=== PATIENT | male | born 1945 | race Caucasian/White ===

== ENCOUNTER 2022-09-23 11:58 | Day surgery (SDC) | payer MEDICARE ==
[2022-09-23] MEDS ORDERED: Midazolam 1 MG/ML 2 ML SDV IV ONE (11:59)
[2022-09-23] MEDS ORDERED: fentaNYL 100 MCG/2 ML SDV IV ONE (11:59)
[2022-09-23] MEDS ORDERED: Lactated Ringers 1,000 ML IV PRN (12:00)
[2022-09-23] MEDS ORDERED: Sodium Chloride 0.9% 10 ML Syringe FLUSH PRN (12:00)
[2022-09-23] MEDS ORDERED: acetaZOLAMIDE 500 MG Cap.ER PO ONE (14:00)
== END 2022-09-23 14:01 ==
LOC: FB.SDS 11:58
PROVIDERS: ATTEND Ophthalmology
DX: H25.13 Age-related nuclear cataract, bilateral (principal); H35.3111 Nonexudative age-related macular degeneration, right eye, early dry stage; D31.31 Benign neoplasm of right choroid; H43.812 Vitreous degeneration, left eye; H53.021 Refractive amblyopia, right eye; E66.01 Morbid (severe) obesity due to excess calories; I10 Essential (primary) hypertension; Z79.899 Other long term (current) drug therapy; Z68.41 Body mass index [BMI] 40.0-44.9, adult
CPT/HCPCS: 00142; 66984; A9270; J2250; J3010; V2632

== ENCOUNTER 2022-10-14 08:28 | Day surgery (SDC) | payer MEDICARE ==
[2022-10-14] MEDS ORDERED: Midazolam 1 MG/ML 2 ML SDV IV ONE (08:29)
[2022-10-14] MEDS ORDERED: Sodium Chloride 0.9% 10 ML Syringe IV ONE (08:29)
[2022-10-14] MEDS ORDERED: fentaNYL 100 MCG/2 ML SDV IV ONE (08:29)
[2022-10-14] MEDS ORDERED: Sodium Chloride 0.9% 10 ML Syringe FLUSH PRN (09:00)
[2022-10-14] MEDS ORDERED: Lactated Ringers 1,000 ML IV PRN (09:00)
[2022-10-14] MEDS ORDERED: acetaZOLAMIDE 500 MG Cap.ER PO ONE (11:00)
== END 2022-10-14 10:32 | disposition home or self-care (01) ==
LOC: FB.SDS 08:28
PROVIDERS: ATTEND Ophthalmology
DX: H25.13 Age-related nuclear cataract, bilateral (principal); H25.813 Combined forms of age-related cataract, bilateral; H35.3111 Nonexudative age-related macular degeneration, right eye, early dry stage; D31.31 Benign neoplasm of right choroid; H43.812 Vitreous degeneration, left eye; H53.021 Refractive amblyopia, right eye; H04.123 Dry eye syndrome of bilateral lacrimal glands; E66.01 Morbid (severe) obesity due to excess calories; I10 Essential (primary) hypertension; Z68.41 Body mass index [BMI] 40.0-44.9, adult; Z79.899 Other long term (current) drug therapy
CPT/HCPCS: 00142-QZ; A9270-GY; J2250; J3010; J3490; V2632